=== PATIENT | female | born 1990 | race Caucasian/White ===

== ENCOUNTER 2021-08-27 00:19 | Inpatient (IN) | payer MEDICAID, OTHER ==
[2021-08-27] MEDS ORDERED: hydrALAZINE 20 MG/ML VIAL SLOW IVP PRN ×2 (00:49→16:00)
[2021-08-27 00:55] VITALS: BMI 30.2
[2021-08-27] MEDS ORDERED: Promethazine HCl 25 MG/ML VIAL IM PRN ×2 (04:59→07:44)
[2021-08-27] MEDS ORDERED: Acetaminophen 500 MG TAB PO PRN (04:59)
[2021-08-27] MEDS ORDERED: Misoprostol 200 MCG TAB PR PRN (04:59)
[2021-08-27] MEDS ORDERED: Ibuprofen 800 MG TAB PO PRN (04:59)
[2021-08-27] MEDS ORDERED: Ondansetron PF 4 MG/2 ML Vial IVP PRN ×3 (04:59→16:00)
[2021-08-27] MEDS ORDERED: Butorphanol Tartrate 1 MG/ML VIAL SLOW IVP PRN (04:59)
[2021-08-27] MEDS ORDERED: Lidocaine 1% (PF) 30 ML VIAL SC PRN (04:59)
[2021-08-27] MEDS ORDERED: NS w/ Oxytocin 30 units 500 ML IV SCH ×2 (05:00)
[2021-08-27] MEDS ORDERED: Lactated Ringer's 1,000 ML IV SCH (05:00)
[2021-08-27 06:09] LABS: Hemoglobin 11.2 g/dL (12.0-15.5); Mean Corpuscular HGB CONC 32.3 g/dL (32.0-36.0); Mean Corpuscular Hemoglobin 28.5 pg (27.0-33.0); Mean Corpuscular Volume 88.3 fl (81.6-98.3); Mean Platelet Volume 11.2 fl (7.4-10.4); Platelet Count 221 10x3/uL (150-450); RBC Distribution Width 13.2 % (11.5-14.5); Red Blood Cell (RBC) Count 3.93 10x6/uL (3.90-5.03); White Blood Cell (WBC) Count 8.8 10x3/uL (3.5-10.5)
[2021-08-27 06:35] LABS: Syphilis Antibody Nonreactive (Nonreactive); Syphilis Antibody Index 0.11 S/CO (<1.00 Non-Reactive)
[2021-08-27 06:36] LABS: HIV (1/2) Antibody/Antigen Non-Reactive (NonReactive); HIV 1/2 INDEX 0.12 S/CO (<1.00)
[2021-08-27 06:37] LABS: Hep B Surf Ag Non-Reactive S/CO (NonReactive)
[2021-08-27 06:43] LABS: HBSAg Index 0.17 S/CO (0-0.99)
[2021-08-27 07:12] LABS: SARS-CoV-2 NAA Rapid Test Not Detected (NotDetected)
[2021-08-27] MEDS ORDERED: Naloxone HCl 0.4 mg/ml Vial IVP PRN ×2 (07:44)
[2021-08-27] MEDS ORDERED: Hydrocerin (Eucerin) Cream 120 gm Jar TOP PRN (07:44)
[2021-08-27] MEDS ORDERED: diphenhydrAMINE 50 MG/ML VIAL IVP PRN (07:44)
[2021-08-27] MEDS ORDERED: ePHEDrine Sulfate 50 MG/10 ML VIAL SLOW IVP PRN (07:44)
[2021-08-27] MEDS ORDERED: Lactated Ringer's 500 ML IV PRN (07:44)
[2021-08-27] MEDS ORDERED: Acetaminophen 325 MG TAB PO PRN (07:44)
[2021-08-27] MEDS ORDERED: Communication Order-Pharmacy FS SCH (07:45)
[2021-08-27] MEDS ORDERED: Fentanyl 2 mcg/Bupivacaine 0.1% Cassette 100 ML EPIDURAL SCH (07:45)
[2021-08-27] MEDS ORDERED: ePHEDrine Sulfate 50 MG/10 ML VIAL ONE (08:00)
[2021-08-27] MEDS ORDERED: Bisacodyl 10 MG SUPP PR PRN (16:00)
[2021-08-27] MEDS ORDERED: Preparation H Ointment 28 GM TUBE PR PRN (16:00)
[2021-08-27] MEDS ORDERED: Milk Of Magnesia 30 ML UDCUP PO PRN (16:00)
[2021-08-27] MEDS ORDERED: Boostrix 0.5 ML (Tdap) VIAL IM ONE (16:00)
[2021-08-27] MEDS ORDERED: Benzocaine-Menthol 82.5 ML CAN TOP PRN (16:00)
[2021-08-27] MEDS ORDERED: diphenhydrAMINE 25 MG CAP PO PRN (16:00)
[2021-08-27] MEDS ORDERED: Lanolin Ointment 7 GM TUBE TOP PRN (16:00)
[2021-08-27] MEDS: Ferrous Sulfate 325 MG TAB PO SCH (20:09)
[2021-08-27] MEDS: Ibuprofen 800 MG TAB PO SCH (22:15)
[2021-08-27] MEDS: Docusate 100 MG CAP PO SCH (22:15)
[2021-08-28] MEDS: Ibuprofen 800 MG TAB PO SCH ×2 (05:13→13:21)
[2021-08-28] MEDS: Docusate 100 MG CAP PO SCH (08:52)
[2021-08-28] MEDS: Ferrous Sulfate 325 MG TAB PO SCH (08:54)
[2021-08-28] MEDS ORDERED: Prenatal Vitamin 1 TAB PO SCH (09:00)
[2021-08-28 13:37] VITALS: BP 116/73; TEMP 98.7
== END 2021-08-28 16:30 | disposition home or self-care (01) | DRG 806 ==
LOC: CSHLD/OP 00:19 → CSHLD 05:09 → CSHPP 15:45
PROVIDERS: ADMIT Obstetrics & Gynecology; ATTEND Obstetrics & Gynecology
PROC: 10E0XZZ Delivery of Products of Conception, External Approach (ICD-10-PCS; principal; 2021-08-27)
DX: O99.02 Anemia complicating childbirth (principal); Q23.1 Congenital insufficiency of aortic valve; Z37.0 Single live birth; D64.9 Anemia, unspecified; Z20.822 Contact with and (suspected) exposure to COVID-19; O99.344 Other mental disorders complicating childbirth; F41.9 Anxiety disorder, unspecified; Z3A.38 38 weeks gestation of pregnancy; O99.892 Other specified diseases and conditions complicating childbirth; O71.82 Other specified trauma to perineum and vulva
CPT/HCPCS: 36415; 51702; 85027; 86780; 86850; 86900; 86901; 87340; 87389; 99285; J2405; J2590; U0002